=== PATIENT | female | born 1965 | race Caucasian/White ===

== ENCOUNTER 2024-11-02 14:13 | Emergency (ER) | payer OTHER ==
[2024-11-02] MEDS ORDERED: KETOROLAC 30 MG/ML INJ ONE (15:23)
[2024-11-02] MEDS ORDERED: HYDROCODONE/APAP 5/325 MG TAB ONE (15:23)
--- NOTE | 2024-11-02 16:15 | RAD REPORT ---
EXAMINATION: Ribs Left INDICATION: PAIN COMPARISON: None TECHNIQUE: Frontal and multiple oblique views of the left rib cage. FINDINGS: Included portions of the chest reveal clear lungs. There is no effusion or pneumothorax. Mediastinal contours are within normal limits. No displaced rib fracture is identified. No suspicious focal osseous lesion.. IMPRESSION: No acute fractures are identified radiographically..
--- NOTE | 2024-11-02 16:15 | RAD REPORT ---
EXAMINATION: ONE VIEW CHEST XR CLINICAL INDICATION: Female, 59 years old.,RIB PAIN - LEFT TECHNIQUE: Frontal chest projection is submitted. Examination is limited by patient positioning and t echnique. COMPARISON: No prior exam. FINDINGS: The lungs are well inflated and clear. No pneumothorax or sizable effusion. The heart is normal in s ize. Mediastinal contours are unremarkable. IMPRESSION: No acute intrathoracic abnormalities.
--- NOTE | 2024-11-02 16:59 | EDPHYS ---
Physician Documentation [facility] Name: Wanda Olivas Age: 59 yrs Sex: Female : 1965 Arrival Date: 11/02/2024 Time: 14:13 Bed 17 Private MD: ED Physician Cole Aguilera HPI: 11/02 17:42 This 59 yrs old Female presents to ER via Wheelchair with complaints of Abdominal Pain, kb Rib pain. 17:42 Pt is a 59 year old female who presents for left anterior lower rib pain that started kb approx 3 days ago. States she jumped into bed the other day because it was cold and felt pain to her ribs. States the pain was worse the next day, then today she reached for something and felt a pop. States pain has been severe since then. . Historical: - Allergies: 14:41 Latex, Natural Rubber; ap3 14:41 Gentamicin; ap3 14:41 Sulfa (Sulfonamide Antibiotics); ap3 14:41 PENICILLINS; ap3 14:41 amoxclav; ap3 14:41 transderm patch; ap3 14:41 Gluten Protein; ap3 - PMHx: 14:41 memory issue; Seizure; Pancreatitis; Diabetes mellitus; hashimotos; Lupus ap3 erythematosus; Osteoporosis; celiac; - Immunization history:: Client reports receiving the 2nd dose of the Covid vaccine. - Infectious Disease History:: Denies. - Social history:: Smoking status: Patient denies any tobacco usage or history of. ROS: 17:39 Constitutional: As per HPI kb Exam: 17:39 Constitutional: This is a well developed, well nourished patient who is awake, alert, kb and in no acute distress. Head/Face: Normocephalic, atraumatic. ENT: Moist Mucous membranes Cardiovascular: Regular rate Respiratory: Respirations even and unlabored. No increased work of breathing. Talking in full sentences Abdomen/GI: Soft, non-tender. No distention Skin: Warm, dry with normal turgor. Normal color. MS/ Extremity: Pulses equal, no cyanosis. Neurovascular intact. Full, normal range of motion. Neuro: Awake and alert, GCS 15, oriented to person, place, time, and situation. 17:39 Chest/axilla: Inspection: normal, Palpation: tenderness, that is severe, of the left lower ribs, just below breast, that totally reproduces the patient's complaints, Vital Signs: 14:45 BP 148 / 62; Pulse 77; Resp 24; Temp 98.5; Pulse Ox 98% ; Weight 77.11 kg; Pain 10/10; ap3 15:30 BP 136 / 53; Pulse 64; Resp 16; Pulse Ox 99% on R/A; db 16:00 BP 123 / 56; Pulse 66; Resp 16; Pulse Ox 99% on R/A; db 17:00 BP 128 / 41; Pulse 65; Resp 16; Pulse Ox 99% on R/A; db 14:45 Pain Scale: Adult ap3 MDM: 14:20 Medical Screening Exam initiated kb 17:40 Differential diagnosis: fracture, contusion, costochondritis. Data reviewed: vital kb signs, nurses notes. Test considered but Not performed: CT: ct scan chest considered and discussed with pt. Pt declines at this time . Historians other than the Patient: Spouse/Significant Other: . Counseling: I had a detailed discussion with the patient and/or guardian regarding the historical points, exam findings, and any diagnostic results supporting the discharge/admit diagnosis, radiology results, the need for outpatient follow up, a family practitioner, to return to the emergency department if symptoms worsen or persist or if there are any questions or concerns that arise at home. 11/02 14:44 Order name: Chest Single View XRAY; Complete Time: 16:33 kb 11/02 14:44 Order name: Ribs Left XRAY; Complete Time: 16:33 kb Administered Medications: 14:44 CANCELLED (Duplicate Order): hydrocodone-acetaminophen(7.5 mg-325 mg) 1 tabs PO once kb 15:35 Drug: Ketorolac IM 30 mg IM once Route: IM; Site: right deltoid; db 17:34 Follow up: Response: No adverse reaction; Pain is decreased db 15:40 Drug: HYDROcodone-acetaminophen PO 5 mg-325 mg 1 tabs PO once Route: PO; db 17:34 Follow up: Response: No adverse reaction db 17:11 Drug: Diazepam PO 2 mg PO once Route: PO; db 17:34 Follow up: Response: No adverse reaction db Disposition Summary: 11/02/24 16:58 Discharge Ordered Notes: Location: Home kb Condition: Stable kb Diagnosis - Chest pain, unspecified - left lower ribs kb Followup: kb - With: Emergency Department - When: As needed - Reason: Worsening of condition Followup: kb - With: Private Physician - When: 2 - 3 days - Reason: Recheck today's complaints, Continuance of care, Re-evaluation by your physician Discharge Instructions: - Discharge Summary Sheet kb - Rib Contusion kb - Chest Wall Pain, [id number] kb Forms: - Medication Reconciliation Form kb - Antibiotic Education kb - Prescription Opioid Use kb - Patient Portal Instructions kb - Leadership Thank You Letter kb Prescriptions: - Diclofenac Sodium 75 mg Oral tablet, delayed release (enteric coated) - take 1 tablet ORAL route 2 times per day As needed; 30 tablet; Refills: 0, kb Product Selection Permitted - orphenadrine citrate 100 mg Oral Tablet Sustained Release - take 1 tablet ORAL route 2 times per day As needed; 20 tablet; Refills: 0, kb Product Selection Permitted Signatures: Dispatcher [employer] EDMS Crissy Barron FNP-C FNP-Ckb Prokisch, Amanda RN RN ap3 Courtney Elder RN RN db Corrections: (The following items were deleted from the chart) 14:44 14:44 Hydrocodone-Acetaminophen PO (7.5 mg-325 mg) 1 tabs PO once ordered. kb kb 14:44 14:44 Chest Single View+RAD.RAD.BRZ ordered. EDMS EDMS 14:44 14:44 Ribs Left+RAD.RAD.BRZ ordered. EDMS EDMS
--- NOTE | 2024-11-02 16:59 | ER ---
Nurse's Notes [facility] Name: Wadna Olivas Age: 59 yrs Sex: Female : 1965 Arrival Date: 11/02/2024 Time: 14:13 Bed 17 Private MD: Diagnosis: Chest pain, unspecified-left lower ribs Presentation: 11/02 14:39 Chief complaint: reports patient hurt her chest a couple of days ago, reached for ap3 something today, and has been having left sided chest pain since. it has been difficult for her to speak since she injured her chest today. Coronavirus screen: At this time, the client does not indicate any symptoms associated with coronavirus-19. Ebola Screen: No symptoms or risks identified at this time. Initial Sepsis Screen: Does the patient meet any 2 criteria? No. Patient's initial sepsis screen is negative. Does the patient have a suspected source of infection? No. Patient's initial sepsis screen is negative. Risk Assessment: Do you want to hurt yourself or someone else? Patient reports no desire to harm self or others. Onset of symptoms is unknown. 14:39 Method Of Arrival: Wheelchair ap3 14:47 Acuity: NANETTE 3 ap3 Triage Assessment: 14:44 General: Appears uncomfortable, Behavior is crying. Pain: Complains of pain in left ap3 breast. Neuro: Level of Consciousness is awake, alert, obeys commands, Oriented to person, place, time, situation, Appropriate for age. Cardiovascular: Patient's skin is warm and dry. Respiratory: Airway is patent Respiratory effort is even, unlabored. Historical: - Allergies: 14:41 Latex, Natural Rubber; ap3 14:41 Gentamicin; ap3 14:41 Sulfa (Sulfonamide Antibiotics); ap3 14:41 PENICILLINS; ap3 14:41 amoxclav; ap3 14:41 transderm patch; ap3 14:41 Gluten Protein; ap3 - PMHx: 14:41 memory issue; Seizure; Pancreatitis; Diabetes mellitus; hashimotos; Lupus ap3 erythematosus; Osteoporosis; celiac; - Immunization history:: Client reports receiving the 2nd dose of the Covid vaccine. - Infectious Disease History:: Denies. - Social history:: Smoking status: Patient denies any tobacco usage or history of. Screenin:47 Abuse screen: Denies threats or abuse. Nutritional screening: No deficits noted. ap3 Tuberculosis screening: No symptoms or risk factors identified. 17:35 [facility] ED Fall Risk Assessment (Adult) History of falling in the last 3 months, db including since admission No falls in past 3 months (0 pts) Confusion or Disorientation No (0 pts) Intoxicated or Sedated No (0 pts) Impaired Gait No (0 pts) Mobility Assist Device Used No (0 pt) Altered Elimination No (0 pt) Score/Fall Risk Level 0 - 2 = Low Risk Oriented to surroundings, Maintained a safe environment. Assessment: 15:15 Reassessment: Patient appears in no apparent distress at this time. Patient and/or db family updated on plan of care and expected duration. Pain level reassessed. Patient is alert, oriented x 3, equal unlabored respirations, skin warm/dry/pink. General: Appears in no apparent distress. uncomfortable, Behavior is calm, cooperative. Pain: Complains of pain in right lateral posterior chest and left breast. Neuro: Level of Consciousness is awake, alert, obeys commands, Oriented to person, place, time, situation. Respiratory: Airway is patent Respiratory effort is even, unlabored, Respiratory pattern is regular, symmetrical. GI: Bowel sounds present X 4 quads. Abd is soft and non tender. Musculoskeletal: Reports. 16:00 Reassessment: Patient appears in no apparent distress at this time. Patient and/or db family updated on plan of care and expected duration. Pain level reassessed. Patient is alert, oriented x 3, equal unlabored respirations, skin warm/dry/pink. 17:35 Reassessment: Patient appears in no apparent distress at this time. Patient and/or db family updated on plan of care and expected duration. Pain level reassessed. Patient is alert, oriented x 3, equal unlabored respirations, skin warm/dry/pink. Patient states feeling better. Patient states symptoms have improved. Vital Signs: 14:45 BP 148 / 62; Pulse 77; Resp 24; Temp 98.5; Pulse Ox 98% ; Weight 77.11 kg; Pain 10/10; ap3 15:30 BP 136 / 53; Pulse 64; Resp 16; Pulse Ox 99% on R/A; db 16:00 BP 123 / 56; Pulse 66; Resp 16; Pulse Ox 99% on R/A; db 17:00 BP 128 / 41; Pulse 65; Resp 16; Pulse Ox 99% on R/A; db 14:45 Pain Scale: Adult ap3 ED Course: 14:16 Patient arrived in ED. mr 14:20 [facility]iss[facility]C [facility] kb 14:20 Cole Aguilera MD is Attending Physician. kb 14:47 Triage completed. ap3 14:47 Arm band placed on left wrist. ap3 15:13 Courtney Elder, RN is Primary Nurse. db 15:23 Patient moved to radiology via wheelchair. db 15:32 Chest Single View XRAY In Process Unspecified. EDMS 15:32 Ribs Left XRAY In Process Unspecified. EDMS 17:35 Patient has correct armband on for positive identification. Side rails up X 1. Provided db Education on: DISCHARGE AND PRESCRIPTIONS. Pulse ox on. NIBP on. Warm blanket given. Pillow given. 17:35 No provider procedures requiring assistance completed. Patient did not have IV access db during this emergency room visit. Administered Medications: 14:44 CANCELLED (Duplicate Order): hydrocodone-acetaminophen(7.5 mg-325 mg) 1 tabs PO once kb 15:35 Drug: Ketorolac IM 30 mg IM once Route: IM; Site: right deltoid; db 17:34 Follow up: Response: No adverse reaction; Pain is decreased db 15:40 Drug: HYDROcodone-acetaminophen PO 5 mg-325 mg 1 tabs PO once Route: PO; db 17:34 Follow up: Response: No adverse reaction db 17:11 Drug: Diazepam PO 2 mg PO once Route: PO; db 17:34 Follow up: Response: No adverse reaction db Medication: 17:35 VIS not applicable for this client. db Outcome: 16:58 Discharge ordered by . kb 17:35 Discharged to home ambulatory, with family, db 17:35 Condition: stable 17:35 Discharge instructions given to patient, family, Instructed on discharge instructions, follow up and referral plans. Prescriptions given X 2, 17:37 Patient left the ED. db Signatures: Dispatcher [employer] EDMS Crissy Barron FNP-C FNP-Ckpeng [place], Reg Reg mr Becca Amado, RN RN ap3 Courtney Elder, RN RN db
[2024-11-02] MEDS ORDERED: DIAZEPAM 2 MG TABLET ONE (17:09)
[2024-11-02 17:41] VITALS: TEMP 98.5
[2024-11-02 17:42] VITALS: O2SAT 99
[2024-11-02 17:45] VITALS: BP 128/41
== END 2024-11-02 17:37 | disposition home or self-care (01) ==
LOC: ER 14:13
DX: R07.81 Pleurodynia (principal); E11.9 Type 2 diabetes mellitus without complications; M32.9 Systemic lupus erythematosus, unspecified; E06.3 Autoimmune thyroiditis; M81.0 Age-related osteoporosis without current pathological fracture; Z88.0 Allergy status to penicillin; Z88.2 Allergy status to sulfonamides; Z88.8 Allergy status to other drugs, medicaments and biological substances; Z91.02 Food additives allergy status
CPT/HCPCS: 71045